=== PATIENT | female | born 1960 | race Caucasian/White ===

== ENCOUNTER 2018-05-08 07:49 | Day surgery (SDC) | payer OTHER ==
[~2018-05-08 07:49] MED LIST: CEFAZOLIN 2 GM/50 ML (PMX) 50 ML IVPB; SOD CHLORIDE 0.9% 1,000 ML IV
[2018-05-08] MEDS ORDERED: LIDOCAINE 1% (MPF) 10 ML INJ (12:07)
[2018-05-08] MEDS ORDERED: HEPARIN 1000 UNITS/ML 10 ML INJ (12:09)
[2018-05-08] MEDS ORDERED: METOCLOPRAMIDE 10 MG INJ (12:27)
[2018-05-08] MEDS ORDERED: LIDOCAINE 2% (SDV) 5 ML INJ (12:27)
[2018-05-08] MEDS ORDERED: CEFAZOLIN 1 GM INJ (12:27)
[2018-05-08] MEDS ORDERED: ONDANSETRON 4 MG INJ (12:27)
[2018-05-08] MEDS ORDERED: PROPOFOL 20 ML (12:27)
[2018-05-08] MEDS: LIDOCAINE 0.5% (MDV) 50 ML INJ (12:46)
[2018-05-08] MEDS ORDERED: OXYCODONE/ACETAMINOPHEN (5/325) TAB PO ×2 (13:00)
[2018-05-08] MEDS ORDERED: DIPHENHYDRAMINE 50 MG INJ IV (13:00)
[2018-05-08] MEDS ORDERED: LABETALOL HCL 20MG INJ IV (13:00)
[2018-05-08] MEDS ORDERED: MEPERIDINE 25 MG INJ IV (13:00)
[2018-05-08] MEDS ORDERED: ONDANSETRON 4 MG INJ IV (13:00)
[2018-05-08] MEDS ORDERED: HYDROmorphONE 1 MG/5 ML IV SYRINGE IV ×3 (13:00)
[2018-05-08] MEDS ORDERED: MIDAZOLAM 1 MG/ML 2 ML INJ IV (13:00)
[2018-05-08] MEDS ORDERED: EPHEDrine SULFATE 50 MG/5 ML SYG IV (13:00)
[2018-05-08] MEDS ORDERED: METOCLOPRAMIDE 10 MG INJ IV (13:00)
[2018-05-08] MEDS ORDERED: FENTAnyl 50 MCG/ML VIAL IV ×3 (13:00)
[2018-05-08] MEDS ORDERED: hydrALAzine 20 MG INJ IV (13:00)
== END 2018-05-08 15:25 | disposition home or self-care (01) ==
LOC: SDS 07:49
DX: Z45.2 Encounter for adjustment and management of vascular access device (principal); Z85.3 Personal history of malignant neoplasm of breast; I10 Essential (primary) hypertension
CPT/HCPCS: 36590; 71045; 84703; 88300; 93005